=== PATIENT | female | born 2000 | race Hispanic/Latino ===

== ENCOUNTER 2024-02-02 01:08 | Emergency (ER) | payer SELFPAY ==
[2024-02-02 01:09] VITALS: BP 136/77; PULSE 103; RESP 16; TEMP 36.6; O2SAT 96; BMI 26.7
--- NOTE | 2024-02-02 01:30 | EX.ED.DYSGE1 ---
HPI History of Present Illness Chief Complaint: Ear Problem Informant: patient Onset/Context/Timing Onset: Days (1-2) Context: Gradual Onset Timing: Continuous Quality: pain Location: left ear Current Severity: Severe Maximum Severity: Severe Narrative Narrative: 23-year-old female presenting with left ear pain for a day or 2. She was at urgent care about 3 days ago told she had an effusion in the left ear without an infection and was prescribed Flonase and advised use of for 1 to 2 weeks. She states she did not feel like she had a cold prior to that, but now does because her friend gave it to her. She complains of a sore throat that is mild and a mild cough but no runny nose or congestion. She flew here on an airplane about 2 weeks ago, and ever since then has not been able to unclog/pop her left ear which is why she went to urgent care in the first place. PFS PFS Medical History no medical history no medical history Home Medications amoxicillin 875 mg-potassium clavulanate 125 mg tablet 875 mg (0.875 x 875-125 mg) PO Q12H #20 TABLETS 02/02/24 [Rx Last Taken Unknown] fluticasone propionate 50 mcg/actuation nasal spray,suspension (Flonase Allergy Relief) 1 spray intranasal DAILY PRN nasal congestion 02/02/24 [History Last Taken Unknown] Allergy/AdvReac Type Severity Reaction Status Date / Time No Known Allergies Allergy Verified 02/02/24 01:11 Social History Smoking Status: Never smoker ROS ROS ED Constitutional Constitutional ED: Denies chills or fever(s) Eyes Eyes: Denies blurry vision or diplopia ENT ENT ED: Reports ear pain left and sore throat; Denies rhinorrhea Cardiovascular Cardiovascular: Denies chest pain or palpitations Respiratory/Chest Respiratory/Chest: Reports cough; Denies dyspnea Gastrointestinal Gastrointestinal: Denies diarrhea, nausea or vomiting EXAM Physical Exam Const Vital Signs: 02/02/24 01:09 Temperature 98 F Temperature Source Temporal Pulse Rate 103 H Respiratory Rate 16 Blood Pressure 136/77 H Blood Pressure Mean 96 Pulse Ox 96 Oxygen Delivery Method Room Air Positive well nourished and well developed General Appearance ED: well developed and NAD HEENT Reports moist mucous membranes HEENT Narrative: Right EAC and TM normal. Mild left preauricular lymphadenopathy/tenderness no abscess or parotid swelling. Left TM is erythematous and bulging without evidence of a perforation. EAC is also erythematous, there is no pain with manipulation of the pinna or the tragus. Eyes PERRL and EOMs intact bilaterally Neck supple Resp normal respiratory effort and clear to auscultation bilaterally Neuro oriented x3, CN's II-XII intact bilaterally and no sensory deficits noted Psych mental status grossly normal MDM MDM MDM Narrative Medical decision making narrative: Consistent with otitis media now, likely due to a serous effusion that became infected. Advised decongestants and given instructions on discharge instructions, as well as a dose of ibuprofen here and started on Augmentin. I think continuing the Flonase would be reasonable. Discharge Plan Triage Chief Complaint: Ear Problem ED Provider: Branden Melgoza Dx/Rx/DC Orders Clinical Impression: Acute otitis media, left, Acute dysfunction of left eustachian tube Instructions: ED Otitis Media Adult Prescriptions: New amoxicillin-pot clavulanate [amoxicillin-pot clavulanate] 875-125 mg tablet 875 mg PO Q12H Qty: 20 0RF No Action fluticasone propionate [Flonase Allergy Relief] 50 mcg/actuation spray,suspension 1 spray intranasal DAILY PRN (Reason: nasal congestion) Rx Instructions: administer into each nostril Primary Care Provider: NOT,DEFINED Referrals: Celia Whalen [Non-Staff] - 1 Week if not improving NOT,DEFINED [Primary Care Provider] - Activity Restrictions/Additional Instructions: Continue using Flonase as prescribed. Consider taking an oral decongestant, containing pseudoephedrine or phenylephrine. These are in many combination cold and flu medications that are available [id number]. These may help to allow pressure to equalize in the left middle ear. Disposition Disposition: Home, Self Care
[2024-02-02] MEDS: Amox/Clavulanate 875 MG Tablet PO (01:40)
[2024-02-02] MEDS: Ibuprofen 600 MG Tablet PO (01:40)
== END 2024-02-02 01:45 | disposition home or self-care (01) ==
LOC: ED 01:43
PROVIDERS: Emergency Provider Emergency Medicine; Visit Provider Emergency Medicine
DX: H66.92 Otitis media, unspecified, left ear (principal); H69.92 Unspecified Eustachian tube disorder, left ear; X58.XXXA Exposure to other specified factors, initial encounter
CPT/HCPCS: 99283

== ENCOUNTER → 2024-12-26 | Outpatient (CLI) | payer SELFPAY ==
[2024-12-26 18:04] LABS: Cholesterol 164 mg/dL (200); Creatinine, Serum 0.56 mg/dL (0.55-1.02); EST Glomerular Filtration Rate 141 mL/min (>60); Est Glom Filt Rate - Afr Amer 171 mL/min (>60); High Density Lipoprotein 65 mg/dL; Triglycerides 65 mg/dL; Very Low Density Lipoprotein 13 mg/dL (5-40)
== END | disposition home or self-care (01) ==
LOC: MFPLAB 16:39
PROVIDERS: Referring Provider Family Medicine; Visit Provider Family Medicine
DX: Z13.220 Encounter for screening for lipoid disorders (principal); H69.92 Unspecified Eustachian tube disorder, left ear
CPT/HCPCS: 36415; 80061; 82565

== ENCOUNTER → 2025-02-06 | Outpatient (CLI) | payer MEDICAID, SELFPAY ==
[2025-02-12 11:07] LABS: Chlamydia By Nucleic Acid AMP Negative (Negative); Gonococcus By Nucleic Acid AMP Negative (Negative); Trich. Vag By Nucleic Acid AMP Negative (Negative)
[2025-02-13 07:56] LABS: HPV Reflexed? NOT INDICATED
== END | disposition home or self-care (01) ==
LOC: LABSPEC 16:53
DX: Z12.4 Encounter for screening for malignant neoplasm of cervix (principal)
CPT/HCPCS: 87491; 87591; 88175; G0145